=== PATIENT | male | born 1970 | race Caucasian/White ===

== ENCOUNTER 2018-08-02 12:10 | Emergency (ER) | payer BC ==
[2018-08-02] MEDS ORDERED: LORazepam 2 MG/ML INJ ONE (12:13)
[2018-08-02] MEDS ORDERED: HALOPERIDOL LACT 5 MG/ML INJ ONE (12:13)
[2018-08-02] MEDS ORDERED: LORazepam 2 MG/ML INJ IVP ONE (12:15)
[2018-08-02] MEDS ORDERED: HALOPERIDOL LACT 5 MG/ML INJ IVP ONE (12:16)
--- NOTE | 2018-08-02 12:17 | EDPHY ---
H & P Source: Patient, EMS Time Seen by Provider: 08/02/18 12:14 HPI/ROS: CHIEF COMPLAINT: Altered mental status HISTORY OF PRESENT ILLNESS: Patient is a 47-year-old man who was at work acting confused and having difficulty ambulating. EMS was called. He has been slightly combative with them but alert and answers most questions appropriately. He denies any complaints. He smells of alcohol. No obvious signs of trauma. No fever. Stable vital signs other than slightly tachycardic . Severity: Moderate Modifying factors: None REVIEW OF SYSTEMS: Unable to obtain secondary to condition EXAM: GENERAL: Well-appearing, well-nourished and in no acute distress. HEAD: Atraumatic, normocephalic. EYES: Pupils equal round and reactive to light, extraocular movements intact, sclera anicteric, conjunctiva are normal. ENT: TMs normal, nares patent, oropharynx clear without exudates. Moist mucous membranes. NECK: Normal range of motion, supple without lymphadenopathy or JVD. LUNGS: Breath sounds clear to auscultation bilaterally and equal. No wheezes rales or rhonchi. HEART: Regular rate and rhythm without murmurs, rubs or gallops. ABDOMEN: Soft, nontender, normoactive bowel sounds. No guarding, no rebound. No masses appreciated. BACK: No CVA tenderness, no spinal tenderness, step-offs or deformities EXTREMITIES: Normal range of motion, no pitting or edema. No clubbing or cyanosis. NEUROLOGICAL: Cranial nerves II through XII grossly intact. No slurred speech , restrained. 5/5 strength, normal movement in all extremities, normal sensation, normal reflexes PSYCH: Normal mood, normal affect. SKIN: Warm, dry, normal turgor, no visible rashes or lesions. (Masoud George) Constitutional: Initial Vital Signs Temperature (C) 36.9 C 08/02/18 12:18 Heart Rate 130 H 08/02/18 12:18 Respiratory Rate 26 H 08/02/18 12:18 Blood Pressure 152/95 H 08/02/18 12:18 O2 Sat (%) 89 L 08/02/18 12:18 O2 Delivery Mode Room Air O2 (L/minute) 2 Allergies/Adverse Reactions: Unable to Assess Allergy (Unverified 08/02/18 12:18) Home Medications: Medication Instructions Recorded Unobtainable 08/02/18 Medical Decision Making - Diagnostics Imaging: Discussed imaging studies w/ interlocker maintainer Radiologist ED Course/Re-evaluation: 1:55 p.m. the patient's alcohol is significantly elevated is consistent with his presentation. CT and lab work is thus far negative. 3:30 p.m. Care transferred to Dr. See. We continue to await sobriety. Otherwise the patient is stable. (Masoud George) Differential Diagnosis: Partial list of the Differential diagnosis considered include but were not limited to; head injury, CVA, intoxication and although unlikely based on the history and physical exam, I also considered trauma, seizure. (Masoud George) Other Provider: I assumed care of the patient at 3:30pm. 4:30 p.m.: The patient is ambulatory. His vital signs are stable. While the patient is still intoxicated his has come to the emergency department and would like to take him home. He has no evidence of respiratory depression. The patient is discharged home under the care of his . (Polo See) - Data Points Laboratory Results: Laboratory Results 08/02/18 12:29 08/02/18 12:29 Medications Given: Discontinued Medications Haloperidol Lactate (Haldol Injection) 5 mg IVP EDNOW ONE Stop: 08/02/18 12:17 Last Admin: 08/02/18 12:17 Dose: 5 mg Lorazepam (Ativan Injection) 1 mg IVP EDNOW ONE Stop: 08/02/18 12:16 Last Admin: 08/02/18 12:17 Dose: 1 mg Departure - Departure Disposition: Home, Routine, Self-Care Clinical Impression: Alcohol intoxication Condition: Fair Instructions: Alcohol Intoxication (ED) Referrals: Patient,NotPresent [Unknown] - As per Instructions Alice Rousseau MD [Medical Doctor] - As per Instructions
[2018-08-02 12:32] LABS: PLATELET COUNT 264 10^3/uL (150-400)
[2018-08-02 17:17] VITALS: BP 121/72
== END 2018-08-02 17:16 | disposition home or self-care (01) ==
DX: F10.129 Alcohol abuse with intoxication, unspecified (principal)
CPT/HCPCS: 80305; 96374; G0480; J1630; J2060